=== PATIENT | female | born 1955 | race Caucasian/White ===

== ENCOUNTER 2016-08-11 05:53 | Day surgery (SDC) | payer OTHER ==
[~2016-08-11] VITALS: Ht 154.9 cm; Wt 68.8 kg
[2016-08-11 06:32] VITALS: Ht 154.9 cm; Wt 68.8 kg
[2016-08-11] MEDS ORDERED: LEVOXYL (06:39)
[2016-08-11] MEDS ORDERED: PROPOFOL 40 ML ONE (07:25)
[2016-08-11] MEDS ORDERED: LIDOCAINE 2% (SDV) 5 ML INJ ONE (07:26)
[2016-08-11] MEDS ORDERED: MIDAZOLAM 1 MG/ML 2 ML INJ ONE (07:37)
[2016-08-11] MEDS ORDERED: FENTAnyl 50 MCG/ML VIAL ONE (07:37)
[2016-08-11 07:55] VITALS: BP 123/79; PULSE 60; RESP 14
--- NOTE | 2016-08-12 06:48 | GILP ---
DATE OF PROCEDURE: NAME OF PROCEDURES: Esophagogastroduodenoscopy and biopsy. SURGEON: Olaf Mcclellan MD PREOPERATIVE DIAGNOSES: 1. Abdominal pain. 2. Chronic heartburn. POSTOPERATIVE DIAGNOSES: 1. Hiatal hernia. 2. Reflux esophagitis with erosions. 3. Gastritis with erosions. 4. Gastric mucosal biopsies were taken for Helicobacter pylori test. INDICATION FOR THE PROCEDURE: Ms. Rita Vaca is a 61-year-old female patient who had upper abdomin al pain and chronic heartburn not responding to therapy. The patient was scheduled for endoscopic e xamination for further evaluation. The procedure and possible complications are well explained to the patient. The patient understood and consented to the procedure. DESCRIPTION OF PROCEDURE: Under the influence of fentanyl and Versed, the gastroscope was carefully introduced into the esophagus and under direct vision, it was advanced to the stomach and through t he pylorus into the duodenal bulb and descending duodenum. FINDINGS: ESOPHAGUS: The patient had hiatal hernia with reflux esophagitis and erosions. STOMACH: The patient had gastritis. Gastric mucosal biopsies were taken for H pylori test. DUODENUM: Normal. She tolerated the procedure very well and there was no complication from the procedure. At the end of the procedure, she was awake with stable vital signs and she was discharged home to the care of h er family. IMPRESSION: Please see postoperative diagnosis. PLAN: 1. Omeprazole 40 mg p.o. every morning. 2. Zantac 300 mg p.o. at bedtime. 3. Await H pylori test report. Dictated By: MOR LAZO/DECLAN Conf#: [id number] DID#: [id number]
== END 2016-08-11 09:21 | disposition home or self-care (01) ==
LOC: GIL 05:53
PROVIDERS: ATTEND Internal Medicine Gastroenterology
DX: K44.9 Diaphragmatic hernia without obstruction or gangrene (principal); K21.0 Gastro-esophageal reflux disease with esophagitis; K29.60 Other gastritis without bleeding
CPT/HCPCS: 43239; 87081; J2250; J3010; Z7610

== ENCOUNTER 2016-10-28 06:13 | Day surgery (SDC) | payer OTHER ==
[~2016-10-28] VITALS: Ht 154.9 cm; Wt 68.5 kg
[~2016-10-28 06:13] MED LIST: LEVOXYL
[2016-10-28 07:55] VITALS: BP 120/63; PULSE 66; RESP 18; Ht 154.9 cm; Wt 68.5 kg
[2016-10-28] MEDS ORDERED: OMEPRAZOLE PO (08:24)
[2016-10-28] MEDS ORDERED: MIDAZOLAM 1 MG/ML 2 ML INJ ONE ×2 (08:37)
[2016-10-28] MEDS ORDERED: FENTAnyl 50 MCG/ML VIAL ONE (08:37)
--- NOTE | 2016-10-28 10:04 | GILP ---
DATE OF PROCEDURE: NAME OF PROCEDURE: Colonoscopy. SURGEON: Mor Nicholson MD PREOPERATIVE DIAGNOSIS: Screening colonoscopy. POSTOPERATIVE DIAGNOSES 1. Colonoscopy all the way to the cecum. 2. Diverticulosis of the colon. 3. Internal hemorrhoids. 4. No colon neoplasm was identified. INDICATION FOR THE PROCEDURE: Ms. Rita Vaca is a 61-year-old female patient who was scheduled for screening colonoscopy. The procedure and possible complications were well explained to the patient. She understood and con sented to the procedure. DESCRIPTION OF PROCEDURE: Under the influence of fentanyl and Versed, the colonoscope was carefully introduced in the rectum, and under direct vision it was advanced all the way to the cecum. FINDINGS: The patient had internal hemorrhoids. She also had diverticulosis of the colon. No colo n neoplasm was identified. She tolerated the procedure very well and there was no complication from the procedure. At the end of the procedure she was awake with stable vital signs and she was discharged home to the care of he r family. IMPRESSION: 1. Colonoscopy all the way to the cecum. 2. Diverticulosis of the colon. 3. Internal hemorrhoids. 4. No colon neoplasm was identified. PLAN: 1. High fiber diet. 2. Next screening colonoscopy in 10 years. Dictated By: MOR LAZO/DECLAN Conf#: [id number] DID#: [id number]
== END 2016-10-28 09:51 | disposition home or self-care (01) ==
LOC: GIL 06:13
PROVIDERS: ATTEND Internal Medicine Gastroenterology
DX: Z12.11 Encounter for screening for malignant neoplasm of colon (principal); K57.90 Diverticulosis of intestine, part unspecified, without perforation or abscess without bleeding; K64.8 Other hemorrhoids
CPT/HCPCS: 45378; J2250; J3010